=== PATIENT | female | born 1985 | race Caucasian/White ===

== ENCOUNTER 2016-11-22 20:07 | Emergency (ER) | payer MEDICAID ==
[2016-11-22 20:16] VITALS: BP 115/78; PULSE 102; RESP 16; TEMP 98.6; O2SAT 99
--- NOTE | 2016-11-22 20:37 | EDPHY ---
H & P Stated Complaint: ~6' mech fall KELLY bradshaw L hand, c/o L elbow & shoulder pain Time Seen by Provider: 11/22/16 20:37 - Personal History LMP (Females 10-55): 8-14 Days Ago Current Tetanus/Diphtheria Vaccine: Yes Current Tetanus Diphtheria and Acellular Pertussis (TDAP): Yes Tetanus Vaccine Date: 2001 - Medical/Surgical History Hx Asthma: Yes Hx Chronic Respiratory Disease: No Hx Diabetes: No Hx Cardiac Disease: No Hx Renal Disease: No Hx Cirrhosis: No Hx Alcoholism: No Hx HIV/AIDS: No Hx Splenectomy or Spleen Trauma: No Other PMH: ovarian cysts, asthma, appendectomy,severe swelling s/t Hornet bite - Social History Smoking Status: Never smoked Constitutional: Initial Vital Signs Temperature (C) 37 C 11/22/16 20:08 Heart Rate 102 H 11/22/16 20:08 Respiratory Rate 16 11/22/16 20:08 Blood Pressure 115/78 11/22/16 20:08 O2 Sat (%) 99 11/22/16 20:08 O2 Delivery Mode Room Air Allergies/Adverse Reactions: cefoxitin Allergy (Verified 10/08/13 07:12) cefoxitin Allergy (Uncoded 10/08/13 07:12) Home Medications: Medication Instructions Recorded Adderall 10 MG (*) 11/22/16 CLONAZEPAM 11/22/16 Zoloft 25mg (*) 11/22/16 Medical Decision Making ED Course/Re-evaluation: CHIEF COMPLAINT: Left elbow and left shoulder pain HISTORY OF PRESENT ILLNESS: Patient was on a pull-up bar not far off the ground. The pull-up bar broke or unhooked and she fell to the ground landing mostly on her left buttocks which does not bother her. She also landed on her left arm and she has no pain in the hand or the wrist or the forearm but she does have pain in the elbow and shoulder. She has normal range of motion of both of those joints but it is somewhat painful. She denies any other injuries. REVIEW OF SYSTEMS: A 10 point review of systems was performed and is negative with the exception of the elements mentioned in the history of present illness. PHYSICAL EXAM: HR, BP, O2 Sat, RR. Temp noted General Appearance: Alert, well hydrated, appropriate, and non-toxic appearing. Head: Atraumatic without scalp tenderness or obvious injury Eyes: Pupils equal, round, reactive to light and accommodation, EOMI, no trauma , no injection. Ears: Clear bilaterally, no perforation, normal landmarks Nose: Atraumatic, no rhinorrhea, clear. Throat: There is no erythema or exudates, no lesions, normal tonsils, mucus membranes moist. Neck: Supple, 2+ carotid upstroke, nontender, no lymphadenopathy. Respiratory: No retractions, no distress, no wheezes, and no accessory muscle use. Lungs are clear to auscultation bilaterally. Cardiovascular: Regular rate and rhythm, no murmurs, rubs, or gallops. Bilateral carotid, radial, dorsalis pedis, and posterior tibial pulses intact. Good capillary refill all extremities. Gastrointestinal: Abdomen is soft, nontender, non-distended, no masses, no rebound, no guarding, no peritoneal signs. Musculoskeletal: The left elbow has no obvious effusion and has normal range of motion but slightly painful. The left shoulder has normal range of motion no obvious deformities on inspection but painful through range of motion. Otherwise, Normal active ROM of all extremities, atraumatic. Neurological: Alert, appropriate, and interactive. The patient has normal DTRs and non-focal cranial nerves, motor, sensory, and cerebellar exam. Skin: No rashes, good turgor, no nodules on palpation. Past medical history: Noncontributory Past surgical history: Noncontributory Family history: Noncontributory Social history: Has daughter does not abuse tobacco drugs or alcohol DIAGNOSTICS/PROCEDURES/CRITICAL CARE TIME: Study: three views of the left elbow and two views of the left shoulder Indication: Trauma Results: After viewing the images myself on the PACS system. My interpretation of the images is: no acute process. The radiologist interpretation is pending at the time of this dictation. DIFFERENTIAL DIAGNOSIS: The differential diagnosis for the patient's trauma included but was not limited to intracranial injury, long bone and pelvic bone fractures, spinal injury, intra-abdominal injury, and intra-thoracic injury. MEDICAL DECISION MAKING: This patient is in no distress however has left elbow and shoulder pain. She has been icing both those areas. This injury happened a couple of hours ago. This patient has no obvious osseous injury of the elbow or shoulder. She most likely has some soft tissue injury. We will put her in a sling give her pain meds and have her follow up with Orthopedic surgery. Departure - Departure Disposition: Home, Routine, Self-Care Clinical Impression: Elbow injury Qualifiers: Encounter type: initial encounter Laterality: left Qualified Code(s): S59.902A - Unspecified injury of left elbow, initial encounter Shoulder injury Qualifiers: Encounter type: initial encounter Laterality: left Qualified Code(s): S49.92XA - Unspecified injury of left shoulder and upper arm, initial encounter Condition: Good Instructions: Elbow Sprain (ED), Shoulder Pain (ED), Swollen Shoulder Joint (ED ) Referrals: Leticia Hoang MD [Primary Care Provider] - As per Instructions Kirill Trejo MD [Medical Doctor] - As per Instructions
[2016-11-22] MEDS ORDERED: HYDROCODONE/APAP 5/325 TAB PO ONE (20:55)
[2016-11-22] MEDS ORDERED: HYDROCOD/APAP 5/325 PREPACK#6 BTL TAKEHOME ONE (21:11)
== END 2016-11-22 21:10 | disposition home or self-care (01) ==
DX: S59.902A Unspecified injury of left elbow, initial encounter (principal); J45.909 Unspecified asthma, uncomplicated; S49.92XA Unspecified injury of left shoulder and upper arm, initial encounter; W18.39XA Other fall on same level, initial encounter
CPT/HCPCS: A4565

== ENCOUNTER 2017-03-31 15:26 | Emergency (ER) | payer MEDICAID ==
[2017-03-31] MEDS ORDERED: HYDROCODONE/APAP 5/325 TAB PO ONE ×2 (15:54→18:06)
[2017-03-31] MEDS ORDERED: methylPREDNISolone SOD SUCC 125 MG/2 ML VIAL IVP ONE (15:54)
[2017-03-31] MEDS ORDERED: RANITIDINE 50 MG/2 ML VIAL IVP ONE (15:54)
--- NOTE | 2017-03-31 15:54 | EDPHY ---
H & P Time Seen by Provider: 03/31/17 15:41 HPI/ROS: CHIEF COMPLAINT: Shortness of breath HISTORY OF PRESENT ILLNESS: Patient has a history of asthma and reactive airway disease. She got stung yesterday by insect, thought it was a bee or a wasp in her garden on her left upper arm. Initially was painful and itchy. Today it is red hot warm and swollen and at 2:45 p.m. she developed shortness of breath. She said it was severe and she used her home nebulizer and now feels better. It was associated with tingling in both hands. No chest pain or face or tongue or lip swelling. No trouble with swallowing. No stridor. REVIEW OF SYSTEMS: Eye: no change in vision ENT: no sore throat Cardiac: no chest pain or syncope Pulmonary: No coughing Abdomen: no vomiting, diarrhea, abdominal pain Musculoskeletal: no back pain Skin: HPI Neuro: no headache Constitutional: no fever : no urinary symptoms A comprehensive 10 point review of systems is otherwise negative aside from elements mentioned in the history of present illness. PAST MEDICAL HISTORY: Includes reactive airway disease and asthma, ovarian cysts. Social history: Nonsmoker General Appearance: Alert and conversant, cooperative. Eyes: No scleral icterus. ENT, Mouth: Normal mucous membranes. No angioedema. Respiratory: Normal respiratory effort, breath sounds equal, lungs are clear to auscultation. No wheezing on my initial exam. Respiratory rate 30. Cardiovascular: Regular rate and rhythm. Gastrointestinal: Abdomen is soft and non tender. Neurological: Alert and oriented x3. Normally conversant. Face symmetric, normal movement and sensation in all extremities. Skin: Patient has a red swollen warm and tender area on the medial side of her left upper arm with central punctum proximally. There is no fluctuance. No lymphangitis. Musculoskeletal: No calf tenderness. Left arm compartments soft, normal shoulder and elbow movement. Psychiatric: Not agitated. Somewhat anxious. Emergency Department course/MDM: I do not think her left upper arm represents cellulitis, rather it is most likely a local allergic reaction. Unclear whether she had reactive airway disease, or asthma at home but no evidence of angioedema or anaphylaxis here currently. Possibly allergic but current oxygen saturation is 98-99%, patient is hyperventilating mildly. Plan for IV steroids, antihistamine, local ice pack. She is requesting oral narcotic for the pain in her left upper arm. I do not think she requires antibiotics, I do not think this is abscess or cellulitis. 1855: Feels better, normal oxygen saturation, heart rate decreased. Plan to treat with antihistamines and steroids, oral pain medication. Smoking Status: Never smoked Constitutional: Initial Vital Signs Temperature (C) 37.1 C 03/31/17 15:31 Heart Rate 120 H 03/31/17 15:31 Respiratory Rate 26 H 03/31/17 15:31 Blood Pressure 96/68 L 03/31/17 15:31 O2 Sat (%) 99 03/31/17 15:31 O2 Delivery Mode Room Air Allergies/Adverse Reactions: cefoxitin Allergy (Verified 03/31/17 15:29) cefoxitin Allergy (Uncoded 10/08/13 07:12) Home Medications: Medication Instructions Recorded Adderall 10 MG (*) 11/22/16 CLONAZEPAM 11/22/16 Zoloft 25mg (*) 11/22/16 Famotidine [Pepcid] 20 mg PO BID #6 tab 03/31/17 predniSONE 10 mg PO AD #15 tab 03/31/17 Medical Decision Making Differential Diagnosis: Differential for SOB included not limited to asthma, PE, anxiety, pneumonia, acidosis. Differential for left arm redness included but not limited to cellulitis, allergic reaction, abscess, fasciitis. - Data Points Medications Given: Discontinued Medications Hydrocodone Bitart/Acetaminophen ([place] 5/325) 1 tab PO EDNOW ONE Stop: 03/31/17 15:55 Last Admin: 03/31/17 16:06 Dose: 1 tab Hydrocodone Bitart/Acetaminophen ([place] 5/325) 1 tab PO EDNOW ONE Stop: 03/31/17 18:07 Last Admin: 03/31/17 18:12 Dose: 1 tab Hydrocodone Bitart/Acetaminophen ([place] 5/325mg Prepack#6) 1 btl TAKEHOME EDNOW ONE Stop: 03/31/17 18:47 Last Admin: 03/31/17 19:12 Dose: 1 btl Methylprednisolone Sodium Succinate (Solu-Medrol) 125 mg IVP EDNOW ONE Stop: 03/31/17 15:55 Last Admin: 03/31/17 16:07 Dose: 125 mg Ranitidine HCl (Zantac) 50 mg IVP EDNOW ONE Stop: 03/31/17 15:55 Last Admin: 03/31/17 16:07 Dose: 50 mg Departure - Departure Disposition: Home, Routine, Self-Care Clinical Impression: Insect sting Qualifiers: Encounter type: initial encounter Injury intent: undetermined intent Qualified Code(s): T63.484A - Toxic effect of venom of other arthropod, undetermined, initial encounter Asthma Qualifiers: Asthma severity: unspecified severity Asthma complication type: with acute exacerbation Qualified Code(s): J45.901 - Unspecified asthma with (acute) exacerbation Condition: Good Instructions: Hydrocodone/Acetaminophen (By mouth), Asthma (ED), Insect Bite or Sting (ED) Referrals: Leticia Hoang MD [Primary Care Provider] - As per Instructions Prescriptions: Famotidine [Pepcid] 20 mg PO BID #6 tab predniSONE 10 mg PO AD #15 tab
[2017-03-31] MEDS ORDERED: HYDROCOD/APAP 5/325 PREPACK#6 BTL TAKEHOME ONE (18:46)
[2017-03-31 18:53] VITALS: BP 124/71; PULSE 81; RESP 16; TEMP 98.4; O2SAT 96
== END 2017-03-31 19:15 | disposition home or self-care (01) ==
DX: J45.901 Unspecified asthma with (acute) exacerbation (principal); T63.484A Toxic effect of venom of other arthropod, undetermined, initial encounter
CPT/HCPCS: 96374; J2780

== ENCOUNTER 2018-11-07 17:52 | Emergency (ER) | payer MEDICAID ==
[2018-11-07] MEDS ORDERED: IPRATROPIUM/ALBUTEROL 3 ML DEYVIAL IH ONE (18:04)
[2018-11-07] MEDS ORDERED: DEXAMETHASONE 10 MG/ML VIAL PO ONE (18:04)
--- NOTE | 2018-11-07 18:07 | EDPHY ---
H & P Stated Complaint: SOB wheezing x 45 mins after exposure to insecticide fumes in [facility] [place] 11/05 Time Seen by Provider: 11/07/18 18:01 - Personal History LMP (Females 10-55): 15-21 Days Ago Tetanus Vaccine Date: 2001 - Medical/Surgical History Hx Asthma: Yes Hx Chronic Respiratory Disease: No Hx Diabetes: No Hx Cardiac Disease: No Hx Renal Disease: No Hx Cirrhosis: No Hx Alcoholism: No Hx HIV/AIDS: No Hx Splenectomy or Spleen Trauma: No Other PMH: ovarian cysts, asthma, appendectomy - Social History Smoking Status: Never smoked Constitutional: Initial Vital Signs Temperature (C) 36.4 C 11/07/18 17:57 Heart Rate 87 11/07/18 17:57 Respiratory Rate 20 11/07/18 17:57 Blood Pressure 144/78 H 11/07/18 17:57 O2 Sat (%) 100 11/07/18 17:57 O2 Delivery Mode Room Air Allergies/Adverse Reactions: cefoxitin Allergy (Verified 03/31/17 15:29) cefoxitin Allergy (Uncoded 10/08/13 07:12) Home Medications: Medication Instructions Recorded Adderall 10 MG (*) 11/22/16 CLONAZEPAM 11/22/16 Zoloft 25mg (*) 11/22/16 Famotidine [Pepcid] 20 mg PO BID #6 tab 03/31/17 Medical Decision Making - Diagnostics Imaging Results: Imaging Impressions Chest X-Ray 11/07/18 18:14 IMPRESSION: Normal chest x-ray. Imaging: I viewed and interpreted images myself ED Course/Re-evaluation: CHIEF COMPLAINT: Shortness of breath HISTORY OF PRESENT ILLNESS: The patient is a 33 y/o female with a history of asthma complaining of shortness of breath after being exposed to an insecticide. The patient recently returned home to her apartment which was treated with insecticide fumes on . The shortness of breath and wheezing occurred around 45 minutes after being exposed. After leaving her apartment her symptoms mildly improved, so she decided to present to the emergency department. No fever, headache, body aches, lightheadedness, chest pain, heart palpitations, cough, abdominal pain, urinary or bowel complaints, numbness, paresthesias. REVIEW OF SYSTEMS: A 10 point review of systems was performed and is negative with the exception of the elements mentioned in the history of present illness. PHYSICAL EXAM: HR, BP, O2 Sat, RR. Temp noted General Appearance: Alert, well hydrated, appropriate, and non-toxic appearing. Head: Atraumatic without scalp tenderness or obvious injury Eyes: Pupils equal, round, reactive to light and accommodation, EOMI, no trauma , no injection. Ears: Clear bilaterally, no perforation, normal landmarks Nose: Atraumatic, no rhinorrhea, clear. Throat: There is no erythema or exudates, no lesions, normal tonsils, mucus membranes moist. Neck: Supple, 2+ carotid upstroke, nontender, no lymphadenopathy. Respiratory: No retractions, no distress, no wheezes, and no accessory muscle use. Lungs are clear to auscultation bilaterally. Cardiovascular: Regular rate and rhythm, no murmurs, rubs, or gallops. Bilateral carotid, radial, dorsalis pedis, and posterior tibial pulses intact. Good capillary refill all extremities. Gastrointestinal: Abdomen is soft, nontender, non-distended, no masses, no rebound, no guarding, no peritoneal signs. Musculoskeletal: Normal active ROM of all extremities, atraumatic. Neurological: Alert, appropriate, and interactive. The patient has normal DTRs and non-focal cranial nerves, motor, sensory, and cerebellar exam. Skin: No rashes, good turgor, no nodules on palpation. Past medical history: Ovarian cysts and asthma Past surgical history: Appendectomy Family history: Denies Social history: Daughter at bedside, lives in [place], employed DIAGNOSTICS/PROCEDURES/CRITICAL CARE TIME: Chest x-ray: Unremarkable DIFFERENTIAL DIAGNOSIS: The differential diagnosis for the patient's shortness of breath and hypoxemia included but was not limited to pneumonia, myocardial infarction, acute mountain sickness, high altitude pulmonary edema, congestive heart failure, and pulmonary embolus. MEDICAL DECISION MAKING: The patient is a 33 y/o female with a history of asthma presenting with shortness of breath after being exposed to an insecticide. The patient recently returned home to her apartment which was treated with insecticide fumes on . The shortness of breath and wheezing occurred around 45 minutes after being exposed. After leaving her apartment her symptoms mildly improved. Her physical exam is unremarkable and I do not appreciate any wheezing. DuoNeb and 6mg PO Decadron administered; chest x-ray ordered. 1839: Patient's chest x-ray is unremarkable, the radiologist agrees. 1847: Reassessed patient and discussed imaging findings. She is feeling better after medication. Return precautions provided; patient is comfortable with this plan. - Data Points Medications Given: Discontinued Medications Albuterol/Ipratropium (Duoneb) 3 ml IH EDNOW ONE Stop: 11/07/18 18:05 Last Admin: 11/07/18 18:12 Dose: 3 ml Dexamethasone (Decadron Injection) 6 mg PO EDNOW ONE Stop: 11/07/18 18:05 Last Admin: 11/07/18 18:11 Dose: 6 mg Departure - Departure Disposition: Home, Routine, Self-Care Clinical Impression: Shortness of breath, insecticide exposure Condition: Good Instructions: Shortness of Breath (ED) Additional Instructions: 1. Follow-up with your primary doctor within 72 hours. 2. Return to the Emergency Department for fever, chest pain, shortness of breath , increasing pain or other worsening of condition. Referrals: [facility],. [Clinic] - As per Instructions Report Scribed for: Alex Posadas Report Scribed by: Marlen Banegas Date of Report: 11/07/18 Time of Report: 18:08
[2018-11-07 19:01] VITALS: BP 113/73
== END 2018-11-07 19:02 | disposition home or self-care (01) ==
DX: R06.02 Shortness of breath (principal); T60.2X1A Toxic effect of other insecticides, accidental (unintentional), initial encounter
CPT/HCPCS: J1100